=== PATIENT | male | born 1990 | race Two or more races ===

== ENCOUNTER 2016-10-30 07:57 | Emergency (ER) | payer OTHER ==
[~2016-10-30] VITALS: Ht 185.4 cm; Wt 100.1 kg
[2016-10-30] MEDS ORDERED: ADVI200C5 PO (08:08)
[2016-10-30] MEDS ORDERED: ACETAMINOPHEN 325 MG TAB PO ONE (08:15)
[2016-10-30 09:07] VITALS: BP 164/79
--- NOTE | 2016-10-30 10:08 | REP ---
Chest x-ray: Two views. History: Fever. Findings: There is a dextroconvex thoracic scoliotic curvature mild in degree. The lungs are well inflated and clear. Pleural angles are sharp. Heart size is normal. Pulmonary vasculature is not increased. No other bony abnormality is seen. Impression: No active disease. Signed by Lamine Coreas MD 10/30/2016 01:58 P
== END 2016-10-30 09:27 | disposition home or self-care (01) ==
LOC: M ED 07:57
DX: J02.9 Acute pharyngitis, unspecified (principal); R50.9 Fever, unspecified; F17.200 Nicotine dependence, unspecified, uncomplicated